=== PATIENT | female | born 1930 | race Caucasian/White ===

== ENCOUNTER 2017-07-01 12:01 | Outpatient (CLI) ==
--- NOTE | 2017-07-01 12:33 | DI ---
Exam: Three x-rays of the left thumb. Comparison: None available. Reason for exam: Left thumb pain. FINDINGS: No acute fracture or listhesis. There is narrowing of the left fifth distal interphalang eal joint space. Mild degenerative disease is seen in the left first carpal-metacarpal joint space. Impression: 1. No acute fracture is seen in the left thumb. 2. Mild to moderate degenerative disease is seen in the left first carpal-metacarpal and left dista l interphalangeal joint space
== END 2017-07-01 12:02 | disposition home or self-care (01) ==
LOC: RAD 12:01
PROVIDERS: ATTEND Family Medicine
DX: M79.645 Pain in left finger(s) (principal)

== ENCOUNTER 2018-02-21 09:53 | Outpatient (CLI) ==
--- NOTE | 2018-02-23 09:18 | MAMMO ---
EXAM: Bilateral digital screening mammogram (2-D and 3-D) History: Screening Comparison: None available. Findings: MLO and CC views of bilateral breasts demonstrate scattered fibroglandular breast parenchy ma. CAD was reviewed by the radiologist. Tomosynthesis was performed. Postsurgical changes with sc arring seen involving the left breast. Benign bilateral vascular and scattered calcifications. Ther e are no dominant masses and no suspicious microcalcifications. Impression: Benign mammogram. Recommend followup routine screening mammography in 1 year. BIRADS 2
== END 2018-02-21 09:54 | disposition home or self-care (01) ==
LOC: RAD 09:53
PROVIDERS: ATTEND Family Medicine
DX: Z12.31 Encounter for screening mammogram for malignant neoplasm of breast (principal)
CPT/HCPCS: 77067

== ENCOUNTER 2018-04-12 11:10 | Observation (INO) ==
[2018-04-12 12:16] VITALS: BMI 37.8
[2018-04-12] MEDS: SODIUM CHLORIDE 1,000 ML IV SCH (13:49)
[2018-04-12] MEDS ORDERED: DONEPEZIL HCL 10 MG PO SCH (21:00)
[2018-04-13] MEDS ORDERED: ZOFRAN TAB ONE (00:22)
[2018-04-13] MEDS: ONDANSETRON 4 MG PO PRN (09:08)
[2018-04-13] MEDS: NON-FORMULARY MEDICATION (Calcium Carbonate/Vitamin D3 [Calcium 600 + Vit D Tablet] 1 EACH PO SCH (09:08)
[2018-04-13] MEDS: NON-FORMULARY MEDICATION (Cholecalciferol (Vitamin D3) [Vitamin D3] 1,000 UNIT) PO SCH (09:08)
[2018-04-13] MEDS: FLUOXETINE HCL 20 MG PO SCH (09:08)
[2018-04-13] MEDS: NON-FORMULARY MEDICATION (Memantine Hcl [Namenda Xr] 28 MG) PO SCH (09:08)
[2018-04-13] MEDS: FUROSEMIDE 20 MG PO SCH (09:08)
[2018-04-13] MEDS: POTASSIUM CHLORIDE 10 MEQ PO SCH (09:08)
[2018-04-13] MEDS ORDERED: TYLENOL PO PRN (12:57)
[2018-04-13] MEDS: SODIUM CHLORIDE 1,000 ML IV SCH (14:48)
[2018-04-13] MEDS: DONEPEZIL HCL 10 MG PO SCH (20:09)
[2018-04-14] MEDS: NON-FORMULARY MEDICATION (Cholecalciferol (Vitamin D3) [Vitamin D3] 1,000 UNIT) PO SCH (08:21)
[2018-04-14] MEDS: NON-FORMULARY MEDICATION (Memantine Hcl [Namenda Xr] 28 MG) PO SCH (08:21)
[2018-04-14] MEDS: POTASSIUM CHLORIDE 10 MEQ PO SCH (08:21)
[2018-04-14] MEDS: FUROSEMIDE 20 MG PO SCH (08:21)
[2018-04-14] MEDS: ONDANSETRON 4 MG PO PRN (08:22)
[2018-04-14] MEDS: FLUOXETINE HCL 20 MG PO SCH (08:22)
[2018-04-14] MEDS: NON-FORMULARY MEDICATION (Calcium Carbonate/Vitamin D3 [Calcium 600 + Vit D Tablet] 1 EACH PO SCH (08:22)
--- NOTE | 2018-04-14 19:51 | MRI ---
EXAM: Brain MRI with and without contrast. HISTORY: Dizziness. COMPARISON: None. TECHNIQUE: Multiplanar, multisequence MR images were acquired of the brain before and after administ ration of intravenous contrast. FINDINGS: The midline structures are central and the craniocervical junction is unremarkable. The v entricles, sulci and cisterns are prominent compatible with normal variation for the patient's age. There are no abnormal extra-axial fluid collections. The brain parenchyma has no diffusion restriction to suggest acute hypoperfusion or infarction. There is a band of periventricular T2 / FLAIR hyperintensity and small T2 / FLAIR hyperintensities are pre sent in the supratentorial white matter, right thalamus and fede consistent with moderate leukoenceph alopathy. There is a chronic lacuna in the left thalamus with surrounding hyperintense T2 signal gli osis and there is a probable chronic lacuna in the posterior left external capsule. Extensive dilated perivascular spaces are present in both basal ganglia. There are no abnormal foci of dark gradient e cho signal to indicate intracranial hemorrhage. After administration of gadolinium, no enhancing les ions are identified. The corpus callosum is normal in configuration. The pituitary gland is low norm al in size with homogeneous enhancement. The infundibulum is midline. There are no intraorbital masses. Paranasal sinuses, middle ears and the left mastoid air cells are c lear. There is mucosal thickening in a mild number of the right mastoid air cells. There is no abno rmal contrast enhancement in the internal auditory canals or labyrinthine structures. Flow voids are present in the major intracranial arteries. Dural venous sinuses are patent. There is a small 6.7 mm T1 and T2 hypointensity with dark gradient echo signal arising from the inner table of the right frontal calvarium. This is a broad dural base and no abnormal enhancement and pr obably represents a small osteoma or focal hyperostosis frontalis interna. IMPRESSION: 1. No intracranial mass, hemorrhage or acute cerebral infarct. 2. Moderate chronic ischemic small vessel disease and chronic lacunes left thalamus and left externa l capsule. 3. Mild chronic right mastoiditis.
[2018-04-14] MEDS ORDERED: ARICEPT ONE (20:52)
[2018-04-14] MEDS: SODIUM CHLORIDE 1,000 ML IV SCH (21:01)
[2018-04-14] MEDS: DONEPEZIL HCL 10 MG PO SCH (21:03)
[2018-04-15] MEDS ORDERED: LASIX TAB ONE (05:33)
[2018-04-15] MEDS: FLUOXETINE HCL 20 MG PO SCH (08:32)
[2018-04-15] MEDS: NON-FORMULARY MEDICATION (Memantine Hcl [Namenda Xr] 28 MG) PO SCH (08:32)
[2018-04-15] MEDS: POTASSIUM CHLORIDE 10 MEQ PO SCH (08:32)
[2018-04-15] MEDS: FUROSEMIDE 20 MG PO SCH (08:32)
[2018-04-15] MEDS: NON-FORMULARY MEDICATION (Cholecalciferol (Vitamin D3) [Vitamin D3] 1,000 UNIT) PO SCH (08:32)
[2018-04-15] MEDS: NON-FORMULARY MEDICATION (Calcium Carbonate/Vitamin D3 [Calcium 600 + Vit D Tablet] 1 EACH PO SCH (08:33)
[2018-04-15] MEDS ORDERED: ANTIVERT PO SCH (15:00)
[2018-04-15 19:13] VITALS: BP 120/64; TEMP 97.5
--- NOTE | 2018-05-19 11:32 | PN ---
DATE OF SERVICE: 04/14/18 CHIEF COMPLAINT/BRIEF HISTORY OF PRESENT ILLNESS: The patient was seen in the office on the ; admitted for elevated blood pressure associated with dizziness, nausea and vomiting. We took the approach of starting her on some clear fluids, giving her IV fluids, monitoring blood pressure, laboratories and neurologic exam. The family was a little concerned with her baseline dementia that all of this could be in preparation for needing [place] [facility] placement. INTERVAL COURSE: She has continued to have some pain causing disuse of the left shoulder; she can actually move the shoulder when required. She remains confused, no better or worse than baseline. Decision was made to try and get an MRI and she has had this today. It shows no intracranial mass, hemorrhage or acute infarct. Moderate chronic ischemic disease and old lacunar changes of the left thalmus and left external capsule. Her blood pressure has improved; she is actually beginning to eat some. PHYSICAL EXAMINATION: V/S: Temperature 97.6, pulse 72, BP 124/71, respirations 12. CHEST: Clear. CARDIOVASCULAR: Regular. I/ murmur. GASTROENTEROLOGY: Obese, robust. No rebound, guarding or mass. EXTREMITIES: 1+ out of 4 mild pitting edema. NEUROLOGIC: Disoriented times three but pleasant and somewhat personable conversation though no reasonable past and acute memory is present. 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 Babinski's are downward. LABS/X-RAYS: White count on the with only a slight shift. Chemistries with only glucose of 148 and albumin 3. BNP today is 230. Urinalysis is clear. ASSESSMENT: Nausea on presentation - resolved. Nausea with vomiting - same - resolved. Dizziness - improving and really more suggestive for acute labyrinthitis. Land decline - acute on chronic issues. Elevated blood pressure - running smoothly now. Painful left shoulder - suggest rotator cuff issues. Disuse of left shoulder - related to. Ischemic cerebrovascular disease. PLAN: 1. Will try to advance diet. 2. Activity - using therapy. 3. [employer] is looking with the family at [place] [facility] as they do not see how she can be managed at [facility] in her current situation ; if not acute, even [facility]. [facility]
== END 2018-04-15 18:30 ==
LOC: MEDSURG A 11:10
PROVIDERS: ADMIT Family Medicine; ATTEND Family Medicine
DX: R53.1 Weakness (principal); R42 Dizziness and giddiness; R11.2 Nausea with vomiting, unspecified; R26.89 Other abnormalities of gait and mobility; R60.0 Localized edema; R06.02 Shortness of breath; I10 Essential (primary) hypertension
CPT/HCPCS: 36415; 80053; 81001; 83880; 84443; 85025; 97802

== ENCOUNTER 2019-01-22 22:07 | Emergency (ER) | payer OTHER ==
[2019-01-22 22:22] VITALS: BP 141/72; TEMP 97; BMI 38.1
[2019-01-22] MEDS ORDERED: LACTATED RINGERS 1,000 ML IV STA ×2 (22:49→22:54)
[2019-01-22] MEDS ORDERED: ZOFRAN 4 MG/2 ML IVP STA (22:49)
[2019-01-22] MEDS ORDERED: MORPHINE 4 MG/ML SYRINGE IVP STA (22:49)
--- NOTE | 2019-01-22 22:52 | ED.PDOC ---
General ED Provider: Dr. HUMBERTO GRANADOS Chief Complaint: Nausea/Vomiting Stated Complaint: Patient states that he Started having nausea and vomiting 1 hour ago. states that symptoms have now gone. Time Seen by Physician: 22:51 Mode of Arrival: Ambulance Information Source: Patient, Family, EMT Primary Care Provider: ESTELLA CONNELL Nursing and Triage Documentation Reviewed and Agree: Yes Does patient meet sepsis criteria?: No System Inflammatory Response Syndrome: Not Applicable Sepsis Protocol: For patient's 13 years and over: Temp is 96.8 and below OR 101 and greater Pulse >90 BPM Resp >20/minute Acutely Altered Mental Status Are patient's symptoms suggestive of a new infection, such as: -Pneumonia -Skin, Soft Tissue -Endocarditis -UTI -Bone, Joint Infection -Implantable Device -Acute Abdominal Infection -Wound Infection -Meningitis -Blood Stream Catheter Infection -Unknown Review of Systems - Review Of Systems Constitutional: Reports: No symptoms Eyes: Reports: No symptoms Ears, Nose, Mouth, Throat: Reports: No symptoms Respiratory: Reports: No symptoms Cardiac: Reports: No symptoms GI: Reports: Abdominal pain, Nausea, Vomiting : Reports: No symptoms Musculoskeletal: Reports: No symptoms Skin: Reports: No symptoms Neurological: Reports: No symptoms Endocrine: Reports: No symptoms Hematologic/Lymphatic: Reports: No symptoms All Other Systems: Reviewed and Negative Past Medical History - Past Medical History Endocrine: Reports: None Cardiovascular: Reports: CAD, CHF Respiratory: Reports: None Hematological: Reports: Anemia Gastrointestinal: Reports: GERD Genitourinary: Reports: CKD Neuro/Psych: Reports: Anxiety, Dementia Musculoskeletal: Reports: None Cancer: Reports: None Last Menstrual Period: menopausal - Surgical History General Surgical History: Reports: Tonsillectomy, Adenoidectomy, Other (breast/ cyst removed ) - Family History Family History: Reports: Unknown - Social History Smoking Status: Never smoker Hx Substance Use: No Alcohol Screening: None - Immunizations Tetanus Shot up to Date: No (unsure) Physical Exam - Physical Exam Appearance: Well-appearing, No pain distress, Obese Eyes: KATELYN, EOMI, Conjunctiva clear ENT: Nose normal, Oropharynx normal Neck: Supple Respiratory: Airway patent, Breath sounds clear, Breath sounds equal, Respirations nonlabored Cardiovascular: RRR, Pulses normal, No rub, No murmur GI/: Soft, Nontender, No masses, Bowel sounds normal, No Organomegaly Musculoskeletal: Normal strength, ROM intact, No edema, No calf tenderness Skin: Warm, Dry, Normal color Neurological: Sensation intact, Motor intact, Reflexes intact, Cranial nerves intact, Alert, Oriented Psychiatric: Affect appropriate, Mood appropriate Interpretation - Radiology Interpretation Radiology Interpretation By: Radiologist Radiology Results: Negative Exam Interpreted: CT Scan (Abdomen and Pelvis ) Critical Care Note - Critical Care Note Total Time (mins): 30 Course - Course Hematology/Chemistry: 01/22/19 23:10 01/22/19 23:10 Orders, Labs, Meds: Lab Review 01/22/19 01/22/19 23:10 23:10 WBC 15.82 H RBC 5.12 Hgb 15.0 Hct 45.0 MCV 87.9 MCH 29.3 MCHC 33.3 RDW Coeff of Amelia 14.3 Plt Count 218 Immature Gran % (Auto) 0.4 Neut % (Auto) 82.9 Lymph % (Auto) 10.9 [place] % (Auto) 4.6 Eos % (Auto) 0.9 Baso % (Auto) 0.3 Immature Gran # (Auto) 0.1 Neut # (Auto) 13.1 H Lymph # (Auto) 1.7 [place] # (Auto) 0.7 Eos # (Auto) 0.2 Baso # (Auto) 0.0 Sodium 136.9 Potassium 4.12 Chloride 102.1 Carbon Dioxide 28.7 Anion Gap 10.22 BUN 21.6 H Creatinine 0.93 Estimated GFR (MDRD) 57.00 BUN/Creatinine Ratio 23.22 Glucose 123.8 H Calcium 9.20 Total Bilirubin 0.51 AST 25.1 ALT 21.2 Alkaline Phosphatase 120.6 Troponin I < 0.012 Total Protein 7.14 Albumin 4.31 Globulin 2.83 Albumin/Globulin Ratio 1.52 Amylase 84.7 Lipase 57.2 Orders Category Date Time Status EKG-(ED ONLY) Stat CARDIO 01/22/19 22:49 Completed ED IV/MEDIPORT/POWERPORT .ONCE EMERGENCY 01/22/19 22:49 Active AMYLASE Stat LAB 01/22/19 23:10 Completed CBC W/ AUTO DIFF Stat LAB 01/22/19 23:10 Completed COMPREHENSIVE METABOLIC PANEL Stat LAB 01/22/19 23:10 Completed LIPASE Stat LAB 01/22/19 23:10 Completed TROPONIN I Stat LAB 01/22/19 23:10 Completed URINALYSIS C & S IF INDICATED Stat LAB 01/22/19 22:49 Uncollected 0.9 % Sodium Chloride [Saline Flush] MEDS 01/22/19 22:49 Ordered 1 syr IVF PRN PRN Morphine Sulfate [Morphine 4 mg/ml Syringe] MEDS 01/22/19 22:49 Discontinued 2 mg IVP ONCE STA Ondansetron HCl/Pf [Zofran 4 mg/2 ml] MEDS 01/22/19 22:49 Discontinued 4 mg IVP ONCE STA Ringers Lactated Solution [Lactated Ringers] 1,000 ml MEDS 01/22/19 22:49 Discontinued IV BOLUS Ringers Lactated Solution [Lactated Ringers] 1,000 ml MEDS 01/22/19 22:[address] ABD/PEL WO RENAL STONE PROT Stat RADS 01/22/19 22:49 Completed Medications Generic Name Dose Route Start Last Admin Trade Name Freq PRN Reason Stop Dose Admin Lactated Ringer's 1,000 mls @ 150 mls/hr 01/22/19 22:54 01/22/19 23:05 Lactated Ringers IV 01/23/19 05:28 150 mls/hr BOLUS STA Administration Sodium Chloride 1 syr 01/22/19 22:49 01/22/19 23:06 Saline Flush IVF 1 syr PRN PRN Administration To flush IV Discontinued Medications Generic Name Dose Route Start Last Admin Trade Name Freq PRN Reason Stop Dose Admin Lactated Ringer's 1,000 mls @ 1,000 mls/hr 01/22/19 22:49 01/22/19 23:07 Lactated Ringers IV 01/22/19 23:48 1,000 mls/hr BOLUS STA Administration Morphine Sulfate 2 mg 01/22/19 22:49 01/22/19 23:06 Morphine 4 Mg/Ml Syringe IVP 01/22/19 22:50 2 mg ONCE STA Administration Ondansetron HCl 4 mg 01/22/19 22:49 01/22/19 23:04 Zofran 4 Mg/2 Ml IVP 01/22/19 22:50 4 mg ONCE STA Administration Vital Signs: Temp Pulse Resp BP Pulse Ox 01/22/19 22:08 97 F L 69 20 141/72 H 94 L Departure - Departure Time of Disposition: 23:56 Disposition: HOME SELF-CARE Discharge Problem: Nausea, Vomiting Abdominal pain Qualifiers: Abdominal location: generalized Qualified Code(s): R10.84 - Generalized abdominal pain Instructions: Acute Abdominal Pain (ED), Acute Nausea and Vomiting (ED) Condition: Good Pt referred to PMD for follow-up: No IPMP verified?: No Additional Instructions: Push fluids Follow up with PCP in 3 days Prescriptions: Ondansetron [Zofran Odt] 4 mg PO Q8H #12 tab.rapdis Allergies/Adverse Reactions: Allergies No Known Allergies Allergy (Verified 01/22/19 22:35) Home Medications: Ambulatory Orders Calcium Carbonate/Vitamin D3 [Calcium 600 + Vit D Tablet] 1 each PO QAM Cholecalciferol (Vitamin D3) [Vitamin D3] 1,000 unit PO QAM 04/12/18 Donepezil HCl 10 mg PO BEDTIME 04/12/18 Fluoxetine HCl 20 mg PO QAM 04/12/18 Furosemide 30 mg PO QAM 04/12/18 Memantine HCl [Namenda Xr] 28 mg PO QAM 04/12/18 Potassium Chloride [Micro-K Cap] 20 meq PO QAM 04/12/18 Cetirizine HCl [Zyrtec] 5 mg PO DAILY 04/15/18 Ondansetron [Zofran Odt] 4 mg PO Q8H #12 tab.rapdis 01/23/19 Disposition Discussed With: Patient, Family
--- NOTE | 2019-01-22 23:27 | CT ---
EXAM: CT scan abdomen, without contrast HISTORY: Abdominal pain COMPARISON: None. FINDINGS: Contiguous axial images obtained through abdomen pelvis without contrast utilizing 3-mm co llimation. Sagittal and coronal reconstructions were imaged and reviewed.. Calcified granulomas at the right lung base with minimal bibasilar atelectasis. Mild thickening of the distal esophagus. Th e gallbladder is contracted. There are benign granulomatous changes in the spleen. The liver, pancr eas and adrenal glands have normal unenhanced CT appearance. Atherosclerotic changes are seen involv ing the aorta without aneurysm formation.. The kidneys are morphologically normal.. There is divert iculosis without diverticulitis. The uterus is unremarkable. There is no free fluid or inflammatory changes. The appendix was not visualized. There is chronic central compression involving the super ior endplate of L2. IMPRESSION: No acute intra-abdominal findings.
== END 2019-01-23 00:15 | disposition home or self-care (01) ==
LOC: ED 22:07
DX: R11.2 Nausea with vomiting, unspecified (principal); R10.84 Generalized abdominal pain; I25.10 Atherosclerotic heart disease of native coronary artery without angina pectoris; N18.9 Chronic kidney disease, unspecified; K21.9 Gastro-esophageal reflux disease without esophagitis; Z79.899 Other long term (current) drug therapy
CPT/HCPCS: 36415; 74176; 80053; 82150; 83690; 84484; 85025; 93005; 93010; 96361; 96374; 96375; 99283

== ENCOUNTER 2019-01-27 10:21 | Outpatient (CLI) ==
--- NOTE | 2019-01-27 11:23 | US ---
EXAM: Ultrasound abdomen limited right upper quadrant HISTORY: Nausea COMPARISON: None TECHNIQUE: Limited ultrasound abdomen right upper quadrant was performed FINDINGS: Evaluation limited due to patient body habitus and bowel gas shadowing. Visualized portio n pancreas appears normal. Portions of the pancreas obscured secondary bowel gas shadowing. Liver d iffusely increased in echogenicity. Liver normal in size. Main portal vein patent with normal direc tion of flow. A structure that appears to be the gallbladder is decompressed and very poorly evaluat ed. No biliary duct dilation with common bile duct measuring 0.4 cm. Right kidney measures 11.2 cm i n length without hydronephrosis. IMPRESSION: 1. Limited examination. 2. Hepatic steatosis. 3. A structure that appears to be the gallbladder is decompressed and very poorly evaluated.
== END 2019-01-27 10:22 | disposition home or self-care (01) ==
LOC: RAD 10:21
PROVIDERS: ATTEND Family Medicine
DX: R11.0 Nausea (principal)

== ENCOUNTER 2019-02-01 07:56 | Outpatient (CLI) ==
--- NOTE | 2019-02-01 12:16 | NM ---
Exam: Hepatobiliary scintigraphy Date of exam: 02/01/2019 Radiopharmaceutical: 5.2 mCi Tc-99m mebrofenin i.v. HISTORY: Nausea. Comparison: CT examination of the abdomen pelvis performed 01/22/2019 FINDINGS: Following intravenous administration of technetium-99m mebrofenin, sequential abdominal im ages were obtained. There is prompt and uniform accumulation of the radiotracer by the liver. There is normal filling of the intrahepatic ducts with normal excretion of radiotracer into the duodenum. There is persistent radiopharmaceutical uptake seen in the region of the common bile duct. The gallbladder is not seen on the exam. Impression: 1. The gallbladder is not seen on this examination suggesting gallbladder pathology. 2. Unexpected finding/unexpected result: Persistent radiopharmaceutical uptake is seen in the regio n of the common bile duct. This finding can be seen with choledochal cyst, diverticula, and other du ctal etiology. MRCP is recommended for further characterization.
== END 2019-02-01 07:57 | disposition home or self-care (01) ==
LOC: RAD 07:56
PROVIDERS: ATTEND Family Medicine
DX: R11.0 Nausea (principal)

== ENCOUNTER 2021-03-23 18:20 | Observation (INO) ==
[2021-03-23] MEDS ORDERED: TENIVAC IM ONE (18:53)
[2021-03-23 19:32] LABS: BASOPHILS % (AUTO) 0.3 % (0.0-3.0); EOSINOPHILS # (AUTO) 0.2 K/ul (0.0-0.7); EOSINOPHILS % (AUTO) 1.4 % (0.0-7.0); HEMATOCRIT 44.8 % (37.0-47.0); HEMOGLOBIN 15.3 g/dl (12.0-16.0); IMMATURE GRANULOCYTE % (AUTO) 0.3 % (0.0-5.0); LYMPHOCYTES # (AUTO) 2.2 K/uL (0.60-3.4); LYMPHOCYTES % (AUTO) 15.6 (10.0-50.0); MEAN CORPUSCULAR HGB CONC 34.2 (31.8-35.4); MEAN CORPUSCULAR VOLUME 84.8 fl (81.0-99.0); MONOCYTES # (AUTO) 0.7 K/uL (0.4-2.0); MONOCYTES % (AUTO) 4.9 (0-10); NEUTROPHILS # (AUTO) 11.1 K/ul (2.0-6.9); NEUTROPHILS % (AUTO) 77.5 % (42.2-75.2); PLATELET COUNT 230 10^3/uL (140-440); RDW COEFFICIENT OF VARIATION 15.6 % (11.6-14.8); RED BLOOD COUNT 5.28 10^6/ul (4.20-5.40); WHITE BLOOD COUNT 14.36 K/ul (4.6-10.2)
[2021-03-23 19:45] LABS: ALANINE AMINOTRANSFERASE 21.8 U/L (0-35); ALBUMIN 3.87 g/dL (3.5-5.0); ALKALINE PHOSPHATASE 113.4 U/L (53-141); ASPARTATE AMINO TRANSFERASE 27.4 U/L (14-36); BILIRUBIN,TOTAL 0.56 mg/dL (0.2-1.3); BLOOD UREA NITROGEN 17.4 mg/dL (7-17); CARBON DIOXIDE 29.1 mmol/L (22-30.0); CHLORIDE 99.2 mmol/L (98-107); CREATININE 1.18 mg/dL (0.60-1.30); POTASSIUM 3.88 mmol/L (3.5-5.1); SODIUM 135.2 mmol/L (134.5-145); TOTAL PROTEIN 6.94 g/dL (6.3-8.2)
--- NOTE | 2021-03-23 19:48 | CT ---
Exam: CT brain without contrast Date: March 23, 2021 Comparison: MRI brain 04/14/2018 History: Patient fell. Injury. TECHNIQUE: Axial CT images through the brain were obtained without IV contrast. All CT scans are pe rformed using dose optimization techniques as appropriate to the performed exam and includes at least one of the following: Automated exposure control, adjustment of the mA and/or kV according to size, and the use of iterative reconstruction technique. FINDINGS: A nonspecific 4 x 4 mm calcification arising from the inner table of the right side of the frontal bone is seen, which is likely of doubtful clinical significance. This is unchanged since .. No intracranial mass, mass effect, hemorrhage, or abnormal extra-axial fluid collection. The ventricles and subarachnoid spaces are moderately enlarged. No CT evidence of acute infarction. There are periventricular and subcortical white matter hypodensities that are nonspecific and most likely represent small vessel disease. There are vascular calcifications.There has been bilateral ca taract removal. Paranasal sinuses are clear. No acute calvarial fracture. Nonspecific fluid in the right mastoid air cells may represent reactive mastoid effusion or mastoiditis in the appropriate cl inical setting. Impression: 1. No acute intracranial abnormality is identified. 2. No acute fracture. 3. Nonspecific fluid in the right mastoid air cells may represent reactive mastoid effusion, hemorrh age, or mastoiditis in the appropriate clinical setting. If there is a clinical suspicion for right temporal bone fracture, a CT temporal bone study is recommended. All CT scans are performed using dose optimization techniques as appropriate to the performed exam an d include at least one of the following: Automated exposure control, adjustment of the mA and/or kV according t o size, and the use of iterative reconstruction technique.
--- NOTE | 2021-03-23 19:54 | CT ---
Exam: CT pelvis without contrast Date: March 23, 2021 Comparison: CT abdomen and pelvis 01/22/2019 History: Patient fell. TECHNIQUE: Axial CT images through the pelvis were obtained without IV contrast. Multiplanar recons tructed images were obtained. All CT scans are performed using dose optimization techniques as appro priate to the performed exam and includes at least one of the following: Automated exposure control, adjustment of the mA and/or kV according to size, and the use of iterative reconstruction technique. FINDINGS: No acute fracture or dislocation. Mild arthritic changes are seen in the bilateral hip janis ints. There is mild arthritis of the bilateral sacroiliac joints. Arthritic changes and degenerativ e disc disease are also seen of the included lumbar spine. Impression: No acute bony abnormality. All CT scans are performed using dose optimization techniques as appropriate to the performed exam an d include at least one of the following: Automated exposure control, adjustment of the mA and/or kV according t o size, and the use of iterative reconstruction technique.
--- NOTE | 2021-03-23 19:56 | CT ---
EXAM: CT cervical spine without contrast. HISTORY: Fall. PROCEDURE: Contiguous axial CT images of the cervical spine without contrast with coronal and sagitt al reformats. FINDINGS: The patient is rotated to the left which limits the exam. There is 2 mm anterolisthesis of C4 on C5. There is normal alignment of the cervical facets. The vertebral body heights are maintai fabien. No evidence of fracture. There is multilevel disc space narrowing. There are posterior osteop hytes at multiple levels of the cervical spine. There is multilevel facet arthropathy. The C1-2 rel ationship is maintained. No prevertebral soft tissue abnormality. There is opacification of the rig ht mastoid air cells. Impression: No evidence of fracture. Spondylolisthesis as described secondary to facet arthropathy. Degenerative changes as described. Right mastoiditis. All CT scans are performed using dose optimization techniques as appropriate to the performed exam an d include at least one of the following: Automated exposure control, adjustment of the mA and/or kV according t o size, and the use of iterative reconstruction technique.
[2021-03-23 19:57] LABS: TROPONIN I < 0.012 ng/ml (0.0000-0.120)
--- NOTE | 2021-03-23 20:00 | DI ---
Exam: Right elbow three views Date: 03/23/2021 Comparison: None History: Right elbow pain after fall. FINDINGS: AP, oblique, and 90 degrees lateral view of the right elbow obtained. No acute fracture or dislocation. No arthritic changes. Impression: No acute bony abnormality.
--- NOTE | 2021-03-23 20:06 | DI ---
EXAM: Four views of the right knee COMPARISON: None HISTORY: Trauma and pain FINDINGS: There is some cortical irregularity seen involving the medial aspect of the proximal right tibia. No definite fracture lucency is identified. Soft tissues are unremarkable. There is some de generative joint space narrowing seen medially. There are no unexpected radiodensities. There is tib ial spine hypertrophy. IMPRESSION: 1. Cortical irregularity of the medial aspect of the proximal right tibia without definite fracture lucency. Recommend correlation with point tenderness. If clinically indicated CT may be helpful to rule out underlying tibial plateau fracture.A chronic epiphyseal scar may also have a similar appeara nce.
--- NOTE | 2021-03-23 21:28 | CT ---
Exam: CT right knee without contrast History: Abnormal radiograph, trauma and pain Technique: [address] of the right knee with multiplanar reformations FINDINGS: Moderate to severe tricompartmental osteoarthritic change. Relative heavy burden of chondr ocalcinosis. No fracture lines are seen. No joint effusion. No acute bony or articular abnormaliti es. No acute peripheral soft tissue abnormalities. Impression: 1. 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 Heavy burden of chondrocalcinosis 3. Medial tibial irregularity seen on radiograph likely represents osteoarthritic change. 4. No acute bony or articular abnormalities All CT scans are performed using dose optimization techniques as appropriate to the performed exam an d include at least one of the following: Automated exposure control, adjustment of the mA and/or kV according t o size, and the use of iterative reconstruction technique.
--- NOTE | 2021-03-23 21:31 | ED.PDOC ---
General ED Provider: Dr. BING LAUREANO Chief Complaint: Fall Stated Complaint: she keeps falling and they cannot take care of her at assisted living--she cant walk at all Time Seen by Provider: 03/23/21 18:55 Mode of Arrival: Walk-In Information Source: Family and EMT Primary Care Provider: ESTELLA CONNELL Nursing and Triage Documentation Reviewed and Agree: Yes Does patient meet sepsis criteria?: No System Inflammatory Response Syndrome: Not Applicable Sepsis Protocol: For patient's 13 years and over: Temp is 96.8 and below OR 101 and greater Pulse >90 BPM Resp >20/minute Acutely Altered Mental Status Are patient's symptoms suggestive of a new infection, such as: -Pneumonia -Skin, Soft Tissue -Endocarditis -UTI -Bone, Joint Infection -Implantable Device -Acute Abdominal Infection -Wound Infection -Meningitis -Blood Stream Catheter Infection -Unknown Musculoskeletal Complaint Exam Knee Pain Complaint/Exam Mechanism of Injury: Reports Trauma Onset/Duration: one hour Symptoms Are: Still present Onset of Pain: Reports Immediate Initial Severity: Mild Current Severity: Moderate Location: Reports Discrete Character: Reports Dull and Aching Aggravating: Reports Movement and Weight bearing Associated Signs and Symptoms: Reports Swelling and Bruising Able to Bear Weight: No Knee Findings: Present Swelling, Ecchymosis and Abnormal contour Igorgio Test Positive: No Sid Test Positive: No Differential Diagnoses: Closed Fracture Review of Systems Review Of Systems Constitutional: Reports No symptoms Eyes: Reports No symptoms Ears, Nose, Mouth, Throat: Reports No symptoms Respiratory: Reports No symptoms Cardiac: Reports No symptoms GI: Reports No symptoms : Reports No symptoms Musculoskeletal: Reports Joint pain and Joint swelling Neurological: Reports No symptoms Endocrine: Reports No symptoms Hematologic/Lymphatic: Reports No symptoms All Other Systems: Reviewed and Negative [facility] Social History History of recent travel: No Female Reproductive History Menstrual Hx Hysterectomy: No Hx Tubal Ligation: No Physical Exam Physical Exam Appearance: Reports Well-appearing Ill-appearing: Not Applicable Pain Distress: Moderate Eyes: Reports KATELYN, EOMI and Conjunctiva clear ENT: Reports Ears normal, Nose normal and Oropharynx normal Neck: Supple Respiratory: Reports Airway patent, Breath sounds clear and Breath sounds equal Cardiovascular: Reports RRR, Pulses normal, No rub and No murmur GI/: Reports Soft, Nontender, No masses and Bowel sounds normal Musculoskeletal: Reports Normal strength and Limited ROM Skin: Reports Warm, Dry and Normal color Neurological: Reports Sensation intact, Motor intact, Reflexes intact, Cranial nerves intact, Alert and Oriented Psychiatric: Reports Affect appropriate and Mood appropriate Interpretation Radiology Interpretation Radiology Interpretation By: Radiologist Radiology Results: Negative EKG Interpretation Time of EKG #1: 21:35 Rate: Normal Rhythm: Sinus Ectopy: None [place]: [place] ST Segment: Normal Interpretation: nsr Critical Care Note Critical Care Note Total Critical Care Time (mins): 0 Course Course Hematology/Chemistry: 03/23/21 19:30 03/23/21 19:30 Orders, Labs, Meds: Lab Review 03/23/21 03/23/21 19:30 19:30 WBC 14.36 H RBC 5.28 Hgb 15.3 Hct 44.8 MCV 84.8 MCH 29.0 MCHC 34.2 RDW Coeff of Amelia 15.6 H Plt Count 230 Immature Gran % (Auto) 0.3 Neut % (Auto) 77.5 H Lymph % (Auto) 15.6 Schuyler % (Auto) 4.9 Eos % (Auto) 1.4 Baso % (Auto) 0.3 Neut # (Auto) 11.1 H Lymph # (Auto) 2.2 Schuyler # (Auto) 0.7 Eos # (Auto) 0.2 Baso # (Auto) 0.0 Immature Gran # (Auto) 0.0 Sodium 135.2 Potassium 3.88 Chloride 99.2 Carbon Dioxide 29.1 Anion Gap 10.78 BUN 17.4 H Creatinine 1.18 Estimated GFR (MDRD) 43.00 BUN/Creatinine Ratio 14.74 Glucose 137.0 H Calcium 9.20 Total Bilirubin 0.56 AST 27.4 ALT 21.8 Alkaline Phosphatase 113.4 Troponin I < 0.012 Total Protein 6.94 Albumin 3.87 Globulin 3.07 Albumin/Globulin Ratio 1.26 Orders Category Date Time Status EKG-(ED ONLY) Stat CARDIO 03/23/21 18:53 Completed CBC W/ AUTO DIFF Stat LAB 03/23/21 19:30 Completed COMPREHENSIVE METABOLIC PANEL Stat LAB 03/23/21 19:30 Completed TROPONIN I Stat LAB 03/23/21 19:30 Completed Tetanus and Diphtheria Tox/Pf [Tenivac] MEDS 03/23/21 18:53 Discontinued 0.5 ml IM .ONCE ONE CT CERVICAL SPINE W/O CONTRAST Stat RADS 03/23/21 18:[address] HEAD W/O CONTRAST Stat RADS 03/23/21 18:[address] KNEE RIGHT WITHOUT CONTRAST Stat RADS 03/23/21 20:[address] PELVIS W/O CONTRAST Stat RADS 03/23/21 18:53 Completed ELBOW, RIGHT MIN 3 VIEWS Stat RADS 03/23/21 18:53 Completed KNEE, RIGHT 4 VIEWS Stat RADS 03/23/21 18:53 Completed Medications Discontinued Medications Generic Name Dose Route Start Last Admin Trade Name Eusebia PRN Reason Stop Dose Admin Tetanus/Diphtheria Toxoids Adsorbed 0.5 ml 03/23/21 18:53 03/23/21 19:49 Tetanus And Diphtheria Tox/Pf 0.5 Ml Disp.Syrin IM 03/23/21 18:54 0.5 ml .ONCE ONE Administration Vital Signs: Temp Pulse Resp BP Pulse Ox 03/23/21 18:21 99.8 F H 88 17 159/79 H 96 Discharge Plan Discharge Patient Disposition: [facility]SF [facility]ORT-TRM HOSP Discharge Problem: Acute knee pain Instructions: Diphtheria/Tetanus Vaccine (By injection) Prescriptions: No Action potassium chloride 10 MEQ capsule, extended release 20 meq PO QAM RF: 0 furosemide 20 MG tablet 40 mg PO QAM RF: 0 fluoxetine 20 MG capsule 20 mg PO QAM RF: 0 Calcium 600 + D(3) 1 EACH tablet 1 ea PO QAM RF: 0 cholecalciferol (vitamin D3) 1,000 UNIT tablet 1,000 unit PO QAM RF: 0 memantine [Namenda XR] 28 MG capsule,sprinkle,ER 24hr 28 mg PO QAM RF: 0 cetirizine [Zyrtec] 10 MG tablet 5 mg PO DAILY RF: 0 carbidopa-levodopa 25-100 mg Tablet 25 - 100 tab PO DAILY RF: 0 ED Provider: HUMBERTO GRANADOS Condition: Fair Physician Progress Note: []
[2021-03-23 22:09] LABS: BORDETELLA PARAPERTUSSIS (PCR) NOT DETECTED (NOT DETECT); BORDETELLA PERTUSSIS (PCR) NOT DETECTED (NOT DETECT); CHLAMYDIA PNEUMONIAE (PCR) NOT DETECTED (NOT DETECT); CORONAVIRUS 229E (PCR) NOT DETECTED (NOT DETECT); CORONAVIRUS HKU1 (PCR) NOT DETECTED (NOT DETECT); CORONAVIRUS NL63 (PCR) NOT DETECTED (NOT DETECT); CORONAVIRUS OC43 (PCR) NOT DETECTED (NOT DETECT); HUMAN METAPNEUMOVIRUS (PCR) NOT DETECTED (NOT DETECT); HUMAN RHINOVIRUS/ENTEROV (PCR) NOT DETECTED (NOT DETECT); INFLUENZA B (PCR) NOT DETECTED (NOT DETECT); MYCOPLASMA PNEUMONIAE (PCR) NOT DETECTED (NOT DETECT); PARAINFLUENZA VIRUS 1 (PCR) NOT DETECTED (NOT DETECT); PARAINFLUENZA VIRUS 2 (PCR) NOT DETECTED (NOT DETECT); PARAINFLUENZA VIRUS 3 (PCR) NOT DETECTED (NOT DETECT); PARAINFLUENZA VIRUS 4 (PCR) NOT DETECTED (NOT DETECT); RESPIRATORY SYNCYTIAL V (PCR) NOT DETECTED (NOT DETECT); SARS_COV_2 (PCR) NOT DETECTED (NOT DETECT)
[2021-03-23 22:54] LABS: ADENOVIRUS (PCR) NOT DETECTED (NOT DETECT)
[2021-03-23 23:28] VITALS: BMI 39.4
[2021-03-24] MEDS: CALCIUM 500 + VIT D 5 MCG (200 IU) TABLET PO SCH (08:30)
[2021-03-24] MEDS: NAMENDA PO SCH ×2 (08:31→20:42)
[2021-03-24] MEDS: LASIX TAB PO SCH (08:31)
[2021-03-24] MEDS: PROZAC PO SCH (08:31)
[2021-03-24] MEDS: VITAMIN D PO SCH (08:31)
[2021-03-24] MEDS: SINEMET 25-100 PO SCH (08:31)
[2021-03-24] MEDS: K-DUR PO SCH (08:31)
[2021-03-24] MEDS ORDERED: NON-FORMULARY MEDICATION (Calcium Carbonate-Vitamin D3 [Calcium 600 + D(3)] 1 EACH tablet) PO SCH (09:00)
[2021-03-25] MEDS: LASIX TAB PO SCH (05:31)
[2021-03-25] MEDS: SINEMET 25-100 PO SCH (08:39)
[2021-03-25] MEDS: K-DUR PO SCH (08:40)
[2021-03-25] MEDS: NAMENDA PO SCH (08:40)
[2021-03-25] MEDS: CALCIUM 500 + VIT D 5 MCG (200 IU) TABLET PO SCH (08:40)
[2021-03-25] MEDS: VITAMIN D PO SCH (08:40)
[2021-03-25] MEDS: PROZAC PO SCH (08:40)
[2021-03-25 10:41] VITALS: TEMP 98
[2021-03-25 14:02] VITALS: BP 135/75
== END 2021-03-25 14:30 ==
LOC: ED 18:20 → MEDSURG A 18:20
PROVIDERS: ADMIT Family Medicine; ATTEND Family Medicine
DX: R53.1 Weakness; R26.9 Unspecified abnormalities of gait and mobility; S50.01XA Contusion of right elbow, initial encounter; M25.569 Pain in unspecified knee; G30.9 Alzheimer's disease, unspecified; F02.80 Dementia in other diseases classified elsewhere, unspecified severity, without behavioral disturbance, psychotic disturbance, mood disturbance, and anxiety; Z20.822 Contact with and (suspected) exposure to COVID-19; M25.521 Pain in right elbow